=== PATIENT | female | born 2000 | race Caucasian/White ===

== ENCOUNTER 2019-04-19 15:09 | Day surgery (SDC) | payer BC ==
[2019-04-19 15:43] VITALS: BMI 24.9
--- NOTE | 2019-04-19 15:47 | PDOC.FPROB ---
FMR OB H&P: HPI - History of Present Illness Chief Complaint: abdominal pain Indentification: 18 y/o @ 32.3 WGA presents with abdominal pain History of Present Illness: Patient reports abdominal pain the past couple of days. It is constant in the RLQ radiating to the groin. It has gotten progressively worse. She denies dysuria, vaginal bleeding, vaginal d/c, LOF. Denies fevers, chills. Endorses movement. Primary Care Physician: Dr. Rees FMR OB H&P: Current - Care : 1 Para: 0 Gestational age: 32.3 WGA Due date: 06/11/19 Dating Criteria: Unknown - OB Labs Blood type: unknown RH: unknown Antibody Screen: unknown HIV: unknown RPR: unknown HepBsAg: unknown Quad screen: unknown Gonorrhea: unknown Chlamydia: unknown GBS: unknown FMR OB H&P: History - Past Medical History PMH: None - OB History OB History: - Surgical History Sx History: None - Social History Social History: Denies tobacco, EtOH, or drug use - Family History Family History: Dad - CKDIII, adrenal insufficiency Mom - HTN FMR OB H&P: Medications - Current Home Medications: Medication Instructions Recorded Confirmed Type Pnv 102/Iron/Folate 1/Dss/Dha 1 tab PO DAILY 04/19/19 04/19/19 History [Vitafol Fe+ Docusate Combo Pck] Allergies/Adverse Reactions: Allergies Allergy/AdvReac Type Severity Reaction Status Date / Time nitrofurantoin Allergy Verified 04/19/19 15:47 [From Macrobid] FMR OB H&P: ROS - Review of Systems General: denies: fever/chills, fatigue ENT: denies: nasal congestion, rhinorrhea, sore throat Cardiovascular: denies: chest pain, edema Respiratory: denies: cough, shortness of breath Gastrointestinal: reports: abdominal pain. denies: nausea, vomiting, diarrhea, constipation Genitourinary (Female): denies: dysuria, hematuria, vaginal discharge, vaginal bleeding, contractions Musculoskeletal: denies: pain, tenderness Neurologic: denies: numbness, weakness Integumentary: denies: itching, rash Endocrine: denies: cold intolerance, heat intolerance Psychological: denies: depression, anxiety FMR OB H&P: Vital Signs - Maternal Vital signs: BP 108/61 HR 74 RR 18 Temp 98.1 O2 sat 99% on RA - Heart Tones Baseline: 130 Variability: moderate Acceleration: absent Deceleration: absent Category: category 1 [place] contractions every: None FMR OB H&P: Physical Exam - Physical Exam General: NAD, awake, alert and oriented HEENT: EOMI, MMM, no scleral icterus, grossly normal vision, grossly normal hearing Neck: supple, FROM Heart: RRR, normal S1/S2, no murmurs/rubs/gallops, pulses present, no edema General: CTAB, no respiratory distress, good air movement, no rales/rhonchi, no wheezing Abdomen: soft, gravid, other (TTP in suprapubic and RLQ, no rebound or guarding) Skin: good tugor, capillary refill <2 seconds Lymphatic: no unusual bruising or bleeding, no purpura Psychiatric: intact recent and remote memory, good judgement and insight FMR OB H&P: A/P - Problem List (1) with suprapubic pain, antepartum Current Visit: Yes Status: Acute Code(s): O99.89 - OTH DISEASES AND CONDITIONS COMPL PREG/CHLDBRTH; R10.30 - LOWER ABDOMINAL PAIN, UNSPECIFIED Assessment and Plan: Patient with predominantly suprapubic/groin pain -Will check UA -VP3 -Monitor FHT's No concern for labor Vitals WNL Disposition: d/c home pending results Discussion: Date/Time: 04/19/19 7040 This H&P was discussed with Dr. Rees who agrees with the above documentation and plan. Signature: Xiomara Clay MD, PGY-2
[2019-04-19 16:14] LABS: Bilirubin Negative (Negative); Blood, Urine Negative (Negative); Clarity CLEAR (Clear); Glucose, Urine (Dipstick) Negative (Negative); Leukocyte Negative (Negative); Nitrite Negative (Negative); Protein, Urine (Dipstick) Negative (Neg-Trace); Urobilinogen 0.2 mg/dL (0.2-1.0)
[2019-04-19 16:35] LABS: RBC/HPF 0-3 HPF (0-3)
[2019-04-19 16:36] LABS: Bacteria/HPF None Seen HPF (None Seen); Hyaline Casts/LPF NONE SEEN LPF (0-3 Hyaline); Specific Gravity, Urine 1.002 (1.002-1.036); Squamous Epithelial 0-3 HPF (0-3); WBC/HPF 0-3 HPF (0-3)
--- NOTE | 2019-04-19 18:05 | PDOC.EVN ---
Event Note - Event Note Event Note: UA returns negative. VP3 is negative. Fhts stable. No significant UCs seen. SVE closed, long. DC home with precautions. Dr. Rees aware.
== END 2019-04-19 18:05 | disposition home health service (06) ==
LOC: L&D/OP 15:09
PROVIDERS: ATTEND Obstetrics & Gynecology
DX: O26.893 Other specified pregnancy related conditions, third trimester (principal); R10.31 Right lower quadrant pain; Z3A.32 32 weeks gestation of pregnancy; Z88.1 Allergy status to other antibiotic agents
CPT/HCPCS: 81001; 87480; 87510; 87660; 99283

== ENCOUNTER 2019-05-04 15:44 | Day surgery (SDC) | payer BC | END 2019-05-04 16:00 | disposition home or self-care (01) | LOC: L&D/OP 15:44 | PROVIDERS: ATTEND Obstetrics & Gynecology | DX: O36.8130 Decreased fetal movements, third trimester, not applicable or unspecified (principal); Z88.1 Allergy status to other antibiotic agents; Z3A.34 34 weeks gestation of pregnancy | CPT/HCPCS: 59025; 99282 ==

== ENCOUNTER 2019-05-29 16:23 | Emergency (ER) | payer BC ==
[~2019-05-29 16:23] MED LIST: ISOVUE-370 76%-LOCM 1 ML ONE
[2019-05-29 17:11] LABS: Hemoglobin 10.3 g/dL (12.0-16.0); Mean Corpuscular HGB CONC 33.3 g/dL (32.0-36.0); Mean Corpuscular Hemoglobin 27.5 pg (25.0-35.0); Mean Corpuscular Volume 82.6 fL (78.0-98.0); RBC Distribution Width 12.8 % (11.5-14.5); Red Blood Cell (RBC) Count 3.73 mill/uL (4.00-5.20); White Blood Cell (WBC) Count 8.7 thou/uL (4.8-10.8)
[2019-05-29 17:12] LABS: #Eosinphils 0.1 thou/uL (0.0-0.7); #Lymphocytes 1.3 thou/uL (1.20-3.40); #Monocytes 0.5 thou/uL (0.11-0.59); #Neutrophils 6.8 thou/uL (1.40-6.50); %Eosinophils 1.2 % (0.0-10.0); %Lymphocytes 14.5 % (28.0-48.0); %Neutrophils 78.2 % (31.0-61.0)
[2019-05-29 17:20] LABS: Mean Platelet Volume 11.6 fL (7.4-10.4); Platelet Count 175 thou/uL (130-400)
[2019-05-29 17:24] LABS: ALT (SGPT) 9 U/L (8-55); AST (SGOT) 13 U/L (5-34); Albumin 3.6 g/dL (3.5-5.0); Alkaline Phosphatase 256 U/L (40-150); Anion Gap 13 mmol/L (10-20); BUN (Urea Nitrogen) Less than 4 mg/dL (7.0-18.7); Bilirubin, Total 0.3 mg/dL (0.2-1.2); CK (CPK) 81 U/L (29-168); Calc. Creatinine Clearance 0 mL/min (70-130); Calcium 9.2 mg/dL (7.8-10.44); Carbon Dioxide 22 mmol/L (22-29); Chloride 106 mmol/L (98-107); Estimated GFR-MDRD Greater than 90; Globulin 2.6 g/dL (2.4-3.5); Glucose 87 mg/dL (70-105); Lipase 40 U/L (8-78); Potassium 3.9 mmol/L (3.5-5.1); Protein, Total 6.2 g/dL (6.0-8.3); Sodium 137 mmol/L (136-145)
--- NOTE | 2019-05-29 20:57 | CT ---
EXAM: CT pulmonary angiogram with IV contrast and 3-D MIP reconstructions PROVIDED CLINICAL HISTORY: Chest pain COMPARISON: None FINDINGS: There is no evidence for central or segmental pulmonary embolus. The lungs are free of significant op acity. No pleural fluid or pneumothorax apparent. No evidence for thoracic lymph node enlargement. The airway appears patent and of normal caliber. The visualized portions of the upper abdomen demonst rate no acute findings. The osseous structures demonstrate no concerning lytic or blastic lesions. IMPRESSION: No evidence for central or segmental pulmonary embolus.
--- NOTE | 2019-05-29 22:51 | PRG ---
DATE OF SERVICE: 05/29/2019 TIME OF SERVICE: 2020 hours. PRESENTING COMPLAINT: "I want to see if my baby is okay, because of decreased movement earlier in the day at 38 weeks gestation." HISTORY OF PRESENT ILLNESS: The patient is a 18-year-old primigravida, who sees Dr. Alessio Rees. She was evaluated in the emergency room for shortness of breath. Please see that ED record under a different medical record number. The patient underwent CTA of the chest and was not found to have any evidence of pulmonary embolus. She presents to labor and delivery stating her baby was moving less earlier in the day, it is moving fine now. She denies contractions. She denies rupture of membranes. She reports she was checked in the office last week and was closed long and high. The patient does have an antepartum record on the unit. PAST MEDICAL HISTORY: None. PAST SURGICAL HISTORY: Denies. ALLERGIES: DENIES. MEDICATIONS: vitamins. SOCIAL HISTORY: Denies tobacco, alcohol, or IV drug use. FAMILY HISTORY: Noncontributory. REVIEW OF SYSTEMS: Noncontributory. PHYSICAL EXAMINATION: GENERAL: White female, resting comfortably. Afebrile. The patient's blood type is A negative. LUNGS: Clear to auscultation bilaterally. Please see ER exam. ABDOMEN: Soft and nontender without rebound or guarding. Vaginal exam is deferred. EXTREMITIES: No clubbing, cyanosis, or edema. heart rate tracing was carried out for greater than 20 minutes. No contractions noted. Category I heart rate tracing was noted. Baseline is 150s, it excels to 160s to 170s with no decelerations noted. IMPRESSION: Reactive heart rate tracing with decreased movement, now resolved status post ER evaluation for possible pulmonary embolus. PLAN: Discharge home. Keep scheduled followup with Dr. Rees in 2 days, ER precautions. Job ID: [id number]
--- NOTE | 2019-06-03 13:59 | EKG ---
Test Reason : Blood Pressure : / mmHG Vent. Rate : 076 BPM Atrial Rate : 076 BPM P-R Int : 130 ms QRS Dur : 070 ms QT Int : 366 ms P-R-T Axes : 053 072 050 degrees QTc Int : 411 ms Normal sinus rhythm Normal ECG Confirmed by RUDDY WATERS M.D. ([id number]), desk editor FARTUN JOHNSTON ([id number]) on 06/03/2019 1:58:46 PM Referred By: Confirmed By:RUDDY WATERS M.D.
== END 2019-05-29 21:27 | disposition home or self-care (01) ==
LOC: L&D/OP 16:23 → ERS 16:23 → EDSTATUS 16:29 → ERS 21:27
DX: O99.89 Other specified diseases and conditions complicating pregnancy, childbirth and the puerperium (principal); R07.89 Other chest pain; Z3A.38 38 weeks gestation of pregnancy
CPT/HCPCS: 36415; 71275; 80053; 82550; 83690; 84484; 85025; 93005

== ENCOUNTER 2019-05-29 21:46 | Day surgery (SDC) | payer BC ==
[2019-05-29 21:57] VITALS: BMI 27.1
[2019-05-29] MEDS ORDERED: hydrALAZINE 20 MG/ML VIAL SLOW IVP PRN (22:22)
== END 2019-05-29 22:30 | disposition home or self-care (01) ==
LOC: L&D/OP 21:46
PROVIDERS: ATTEND Obstetrics & Gynecology
DX: O99.89 Other specified diseases and conditions complicating pregnancy, childbirth and the puerperium (principal); R07.9 Chest pain, unspecified
CPT/HCPCS: 36415; 71275; 80053; 82550; 83690; 84484; 85025; 93005; 99282

== ENCOUNTER 2019-06-06 19:15 | Inpatient (IN) | payer BC ==
[2019-06-06 20:06] VITALS: BMI 26.6
[2019-06-06] MEDS ORDERED: Methylergonovine 0.2 MG/ML VIAL IM PRN (21:35)
[2019-06-06] MEDS ORDERED: Misoprostol 200 MCG TAB PR PRN (21:35)
[2019-06-06] MEDS ORDERED: Zolpidem Tartrate 5 MG TAB PO PRN (21:35)
[2019-06-06] MEDS ORDERED: Butorphanol Tartrate 1 MG/ML VIAL SLOW IVP PRN (21:35)
[2019-06-06] MEDS ORDERED: Ibuprofen 800 MG TAB PO PRN (21:35)
[2019-06-06] MEDS ORDERED: Diphenoxylate HCl/Atropine Tablet PO PRN ×2 (21:35)
[2019-06-06] MEDS ORDERED: Lidocaine 1% (PF) 30 ML VIAL SC PRN (21:35)
[2019-06-06] MEDS ORDERED: hydrALAZINE 20 MG/ML VIAL SLOW IVP PRN (21:35)
[2019-06-06] MEDS ORDERED: NS / Oxytocin 40 units/1000ml 1,000 ML IV PRN (21:35)
[2019-06-06] MEDS ORDERED: Ondansetron PF 4 MG/2 ML Vial IVP PRN (21:35)
[2019-06-06] MEDS ORDERED: Carboprost 250 MCG/ML AMP IM PRN (21:35)
[2019-06-06] MEDS ORDERED: HYDROcodone/Acetaminophen 5/325 mg Tablet PO PRN ×2 (21:35)
[2019-06-06] MEDS ORDERED: Promethazine HCl 25 MG/ML VIAL IM PRN (21:35)
--- NOTE | 2019-06-06 21:44 | PDOC.LDHP ---
Labor and Delivery H&P Chief complaint: scheduled induction HPI: 18 y/o G! P0 at 39 and 1/7 weeks for term induction of labor. Due date: 06/12/19 Grav: 1 Para: 0 Current complications: none Abnormal US findings: No Current medications: pre-evelina vitamins Previous surgical history: none Allergies/Adverse Reactions: Allergies Allergy/AdvReac Type Severity Reaction Status Date / Time nitrofurantoin Allergy Severe Anaphylaxis Verified 05/29/19 21:52 [From Macrobid] Social history: none - Physical Exam Vital signs reviewed and normal: yes General: NAD Heart: RRR Lungs: CTAB Extremeties: no edema FHT: category 1 - Assessment L&D Assessment: elective induction at term - Plan Plan: admit to L&D, cervical ripening
[2019-06-06] MEDS ORDERED: NS w/ Oxytocin 10 units 500 ML IV SCH (22:00)
[2019-06-06] MEDS ORDERED: Penicillin G Potassium 5 MILL.UNITS in Sodium Chloride 0.9% 100 ML IVPB SCH (22:00)
[2019-06-06] MEDS: Misoprostol 100 MCG TAB VAG SCH (22:10)
[2019-06-06] MEDS: Lactated Ringer's 1,000 ML IV SCH (22:10)
[2019-06-06 23:12] LABS: Hemoglobin 9.8 g/dL (12.0-16.0); Mean Corpuscular Hemoglobin 27.3 pg (25.0-35.0); Mean Corpuscular Volume 82.7 fL (78.0-98.0); Mean Platelet Volume 11.4 fL (7.4-10.4); Platelet Count 158 thou/uL (130-400); RBC Distribution Width 13.1 % (11.5-14.5); Red Blood Cell (RBC) Count 3.59 mill/uL (4.00-5.20); White Blood Cell (WBC) Count 8.6 thou/uL (4.8-10.8)
[2019-06-06 23:50] LABS: Hep B Surf Ag Non-Reactive S/CO (NonReactive); Syphilis Antibody Nonreactive (Nonreactive); Syphilis Antibody Index 0.04 S/CO (<1.00 Non-Reactive)
[2019-06-07] MEDS: Misoprostol 100 MCG TAB VAG SCH ×2 (01:43→08:17)
[2019-06-07] MEDS ORDERED: Penicillin G 2.5 MILL.units 2.5 MILL.UNITS in Premix Bag 1 BAG IVPB SCH (02:00)
[2019-06-07] MEDS: Lactated Ringer's 1,000 ML IV SCH ×3 (03:50→14:38)
[2019-06-07] MEDS ORDERED: Bupivacaine 0.25% HCL 30 ML VIAL ONE (12:00)
[2019-06-07] MEDS ORDERED: Sodium Chloride 0.9% (PF) 10 ML VIAL ONE (12:00)
[2019-06-07] MEDS ORDERED: Fentanyl 4 mcg/Bup 0.1% Cadd 100 ML ONE (13:35)
[2019-06-07] MEDS ORDERED: Lidocaine 1.5%/Epinephrine 1:200,000 5 ML AMPUL IJ ONE (13:43)
[2019-06-07] MEDS ORDERED: ePHEDrine/0.9% NaCl/PF SYRINGE 50 mg/10 ml SLOW IVP PRN (14:19)
[2019-06-07] MEDS ORDERED: Ondansetron PF 4 MG/2 ML Vial IVP PRN ×2 (14:19→17:59)
[2019-06-07] MEDS ORDERED: Acetaminophen 325 MG TAB PO PRN (14:19)
[2019-06-07] MEDS ORDERED: Promethazine HCl 25 MG/ML VIAL IM PRN ×2 (14:19→17:59)
[2019-06-07] MEDS ORDERED: Naloxone HCl 0.4 mg/ml Vial IVP PRN ×2 (14:19)
[2019-06-07] MEDS ORDERED: diphenhydrAMINE 50 MG/ML VIAL IVP PRN (14:19)
[2019-06-07] MEDS ORDERED: Lactated Ringer's 500 ML IV PRN (14:19)
[2019-06-07] MEDS ORDERED: Terbutaline Sulfate 1 MG/ML VIAL ONE (14:20)
[2019-06-07] MEDS ORDERED: Communication Order-Pharmacy FS SCH (14:30)
[2019-06-07] MEDS ORDERED: Fentanyl 4 mcg/Bupivacaine 0.1% Cassette 100 ML EPIDURAL SCH (14:30)
[2019-06-07] MEDS ORDERED: NS / Oxytocin 40 units/1000ml 1,000 ML ONE ×4 (14:33→17:27)
[2019-06-07] MEDS ORDERED: Lidocaine 1% (PF) 30 ML VIAL ONE (14:34)
[2019-06-07] MEDS ORDERED: Penicillin G 2.5 MILL.units 50 ML ONE ×2 (14:34)
[2019-06-07] MEDS: NS w/ Oxytocin 10 units 500 ML IV SCH (16:52)
[2019-06-07] MEDS ORDERED: Lanolin Ointment 7 GM TUBE TOP PRN (17:59)
[2019-06-07] MEDS ORDERED: HYDROcodone/Acetaminophen 5/325 mg Tablet PO PRN ×2 (17:59)
[2019-06-07] MEDS ORDERED: Milk Of Magnesia 30 ML UDCUP PO PRN (17:59)
[2019-06-07] MEDS ORDERED: Bisacodyl 10 MG SUPP PR PRN (17:59)
[2019-06-07] MEDS ORDERED: Preparation H Ointment 28 GM TUBE PR PRN (17:59)
[2019-06-07] MEDS ORDERED: Acetaminophen/Codeine 30-300mg Tablet PO PRN (17:59)
[2019-06-07] MEDS ORDERED: Benzocaine-Menthol 82.5 ML CAN TOP PRN (17:59)
[2019-06-07] MEDS ORDERED: hydrALAZINE 20 MG/ML VIAL SLOW IVP PRN (17:59)
[2019-06-07] MEDS ORDERED: diphenhydrAMINE 25 MG CAP PO PRN (17:59)
[2019-06-07] MEDS ORDERED: Zolpidem Tartrate 5 MG TAB PO PRN (17:59)
[2019-06-07] MEDS ORDERED: NS / Oxytocin 40 units/1000ml 1,000 ML IV SCH (18:00)
[2019-06-07] MEDS: Ibuprofen 800 MG TAB PO SCH (20:50)
[2019-06-07] MEDS: Docusate Calcium (SURFAK) 240 MG CAP PO SCH ×2 (20:50→20:52)
[2019-06-08] MEDS: Ibuprofen 800 MG TAB PO SCH ×3 (04:26→21:39)
[2019-06-08 07:50] LABS: Hemoglobin 10.1 g/dL (12.0-16.0)
[2019-06-08] MEDS: Ferrous Sulfate 325 MG TAB PO SCH ×2 (08:32→18:28)
[2019-06-08] MEDS: Prenatal Vitamin 1 TAB PO SCH (08:32)
[2019-06-08] MEDS: Docusate Calcium (SURFAK) 240 MG CAP PO SCH ×2 (08:35→21:41)
[2019-06-08] MEDS ORDERED: Measles/Mumps/Rubella 10 MCG/0.5 ML VIAL SC ONE (09:00)
[2019-06-08] MEDS ORDERED: Adacel (T-DAP) 0.5 ML SYRINGE IM ONE (09:00)
[2019-06-08] MEDS ORDERED: Varicella virus, LIVE 0.5 ML VIAL SC ONE (09:00)
[2019-06-08] MEDS ORDERED: Bupivacaine 0.25% HCL 30 ML VIAL ONE (09:32)
[2019-06-08] MEDS ORDERED: Sodium Chloride 0.9% (PF) 10 ML VIAL ONE (09:32)
[2019-06-08] MEDS: Misoprostol 100 MCG TAB VAG SCH (21:17)
[2019-06-08] MEDS: NS w/ Oxytocin 10 units 500 ML IV SCH (23:05)
--- NOTE | 2019-06-08 23:42 | PDOC.PP ---
Post Progress Note Post Day #: 1 PO intake tolerated: yes Flatus: yes Ambulation: yes Vital Signs (12 hours) Temp Pulse Resp BP BP Pulse Ox 06/08/19 20:15 98.3 F 78 18 126/85 97 06/08/19 16:31 98 06/08/19 16:22 98.2 F 82 20 115/78 98 06/08/19 12:11 98.0 F 73 20 115/59 L Weight Weight 155 lb - Physical Examination General: NAD Cardiovascular: no m/r/g, RRR Respiratory: clear to auscultation bilaterally, non-labored breathing Abdominal: + bowel sounds, lochia, no distention Extremities: negative homans (B) Neurological: no gross focal deficits Psychiatric: A&Ox3, normal affect Result Diagrams: 06/08/19 07:42 Additional Labs: Post Labs Blood Type A NEGATIVE 06/06/19 23:03 Hep Bs Antigen Non-Reactive S/CO (NonReactive) 06/06/19 22:58 - Assessment/Plan DC home tomorrow planned.
[2019-06-09] MEDS: Ibuprofen 800 MG TAB PO SCH (06:13)
--- NOTE | 2019-06-09 08:46 | DN ---
DATE OF PROCEDURE: 06/07/2019 TIME OF SERVICE: At [facility]. PREOPERATIVE DIAGNOSIS: Intrauterine at 39 weeks 2 days. POSTOPERATIVE DIAGNOSES: Intrauterine at 39 weeks 2 days as well as episodic bradycardia and intermittent category 2 tracing with multiple resuscitative measures taken. NICU was present for delivery. Dr. Reid was also present for part of delivery and assisting. PROCEDURES: 1. Vaginal Delivery over small 2nd degree Episiotomy in the midline. Luikart- Weaver forceps were used through 3 contractions to help bring the baby down to a +3 station. They were disarticulated prior to delivery of the head, which occurred several minutes later with the patient's own spontaneous pushing. COMPLICATIONS: None. QUANTITATIVE BLOOD LOSS: 218 mL. FINDINGS: Viable male , weighing 2901 g or 6 pounds 6 ounces with a nuchal cord x1 which was also somewhat of a body cord after it exited the neck area. Apgars of 8 and 9. DETAILS OF PROCEDURE: The patient was admitted to the [facility] where she was induced with Cytotec. She spontaneously ruptured. She received epidural anesthesia. She went on to have a somewhat intermittent tracing that was category I the majority of the time, but had periods of category II tracing, which were then dealt with expeditiously with resuscitative maneuvers. The 2nd half of her dilatation occurred rather quickly with rapid descent and dilation, which may have contributed to some stress. She received terbutaline. We attempted to place an intrauterine pressure catheter in order to perform amnioinfusion. However, dilatation was too rapid, and the patient was found to be completely dilated at that point. I was there for the entirety of the patient's pushing through the 2nd stage of labor due to periods of bradycardia even while wearing oxygen. We attempted to expedite delivery using Luikart-Weaver forceps. The patient appeared to have adequate anesthesia, adequate station of the head, and the baby who would fit through her pelvis estimated to be 6.5 pounds on both measurements of the fundus and ultrasound in clinic recently performed. The forceps were articulated without any incidents easily and without difficulty maneuvering around the head. They were then used with appropriate traction through three contractions being careful not to use excessive force. The baby descended somewhat with each contraction to a +3 station from approximately a +2 station. The forceps were disarticulated after 3 contractions and the patient was allowed to push the baby using spontaneous pushing efforts and then delivered the head without difficulty. The shoulders delivered quickly and without any difficulty whatsoever. The nuchal cord as well as a partial body cord were then noted and reduced. The baby was placed on mother's abdomen where it had a rapid spontaneous cry. Cord clamping was delayed approximately 1 minute. The NICU physician, Dr. Arvizu, who was present, requested a cord gas to be done, although I am not familiar with the accuracy after delayed cord clamping. We did provide cord sample to one of the nurses in attendance in order to draw cord blood. I did not supervise this procedure nor ensure that it was done correctly as I was attending for the patient's placental delivery at that time. Fundal massage was performed. Placenta delivered intact and then repair of episiotomy was done using 3-0 and 2 -0 chromic sutures. The baby remained on the patient's abdomen much at this time and appeared to have no distress. The baby was examined by the NICU team before the departed and baby was left with mother on her chest for [id number] contact after they left. Once the episiotomy repair was complete, vaginal bleeding appeared to be minimal. The patient was allowed to recover in the labor and delivery room. Job ID: [id number] [facility]
[2019-06-09 08:56] VITALS: BP 112/68; TEMP 98.3
[2019-06-09] MEDS: Ferrous Sulfate 325 MG TAB PO SCH (09:29)
[2019-06-09] MEDS: Prenatal Vitamin 1 TAB PO SCH ×2 (09:30→09:31)
[2019-06-09] MEDS: Docusate Calcium (SURFAK) 240 MG CAP PO SCH (09:31)
== END 2019-06-09 13:15 | disposition home or self-care (01) | DRG 807 ==
LOC: L&D 19:24 → 3SW 06-07 18:38
PROVIDERS: ADMIT Obstetrics & Gynecology; ATTEND Obstetrics & Gynecology
PROC: 10D07Z5 Extraction of Products of Conception, High Forceps, Via Natural or Artificial Opening (ICD-10-PCS; principal; 2019-06-08)
PROC: 10907ZC Drainage of Amniotic Fluid, Therapeutic from Products of Conception, Via Natural or Artificial Opening (ICD-10-PCS; 2019-06-08)
PROC: 0W8NXZZ Division of Female Perineum, External Approach (ICD-10-PCS; 2019-06-08)
PROC: 3E0P7VZ Introduction of Hormone into Female Reproductive, Via Natural or Artificial Opening (ICD-10-PCS; 2019-06-08)
PROC: 3E033VJ Introduction of Other Hormone into Peripheral Vein, Percutaneous Approach (ICD-10-PCS; 2019-06-08)
DX: O76 Abnormality in fetal heart rate and rhythm complicating labor and delivery (principal); Z37.0 Single live birth; Z3A.39 39 weeks gestation of pregnancy; O69.81X0 Labor and delivery complicated by cord around neck, without compression, not applicable or unspecified
CPT/HCPCS: 36415; 51702; 82805; 85014; 85018; 85027; 85461; 86780; 86850; 86900; 86901; 87340; 90384; 96372; J2001; J2540; J2590; J3105; J3490; S0020

== ENCOUNTER 2020-08-04 12:15 | Day surgery (SDC) | payer BC ==
[2020-08-04 12:51] VITALS: BP 110/69; TEMP 98.7; BMI 25.4
--- NOTE | 2020-08-04 12:59 | PDOC.LDHP ---
Labor and Delivery H&P Chief complaint: other (N/V/D) HPI: 19 year-old female, at EGA of 30 and 6/6 weeks presents to L&D with complaints of nausea, vomiting, and diarrhea since 10 hours prior to arrival. She woke up at 3:00 AM with stomach cramping and then began having diarrhea a few hours later, which was followed by vomiting. She has had 5 episodes of watery diarrhea and 4 episodes of vomiting. She has also noted contractions beginning with the diarrhea that are irregular and last about a minute. Patient still feels movement, though it is reduced in the room. She denies any sick contacts or possible food poisoning. She will be following up with her regular OB visits 08/13/[address] Rees. Patient denies fever, urinary sx's, vaginal bleeding, abnormal vaginal d/c, or LE swelling. Current gestational age (weeks): 30 (30.6) Due date: 10/07/20 Dating criteria: last menstrual period Grav: 2 Para: 1 (1001) OB History Details: #1: term @ 39 WGA Current complications: none Abnormal US findings: No Current medications: pre- vitamins Previous surgical history: none Allergies/Adverse Reactions: Allergies Allergy/AdvReac Type Severity Reaction Status Date / Time nitrofurantoin Allergy Severe Anaphylaxis Verified 08/04/20 12:43 [From Macrobid] Social history: none - Physical Exam Abnormal vital signs: HR 106 General: NAD Heart: other (tachycardic w/ regular rhythm) Lungs: nonlabored breathing Abdomen: gravid Extremeties: no edema FHT: category 1 [place] contractions every: none noted on monitor - Plan -: 19 year-old female, at EGA of 30 and 6/6 weeks presents to L&D with complaints of nausea, vomiting, and diarrhea. N/V/D: - Patient mildly tachycardic with slightly dry mucus membranes on exam. Uterine irritability palpated but no contractions noted on monitor. Suspect viral gastroenteritis based on H&P. Will give IVF & antiemetics & check a UA and CMP to evaluate hydration status & electrolytes. Addendum - Attending - Attending Attestation Date/Time: 08/04/20 2373 I personally evaluated the patient and discussed the management with Dr. Rodriguez. I agree with the History, Examination, Assessment and Plan documented above.
[2020-08-04] MEDS ORDERED: hydrALAZINE 20 MG/ML VIAL SLOW IVP PRN (13:19)
[2020-08-04] MEDS ORDERED: Ondansetron PF 4 MG/2 ML Vial IVP PRN (13:21)
[2020-08-04] MEDS ORDERED: Lactated Ringer's 1,000 ML IV SCH (13:30)
[2020-08-04 14:01] LABS: Bacteria/HPF None Seen HPF (None Seen); Bilirubin Negative (Negative); Blood, Urine Negative (Negative); Clarity Clear (Clear); Glucose, Urine (Dipstick) Normal (Negative); Ketone, Urine 10 mg/dL (Negative); Leukocyte Negative Leu/uL (Negative); Nitrite Negative (Negative); Protein, Urine (Dipstick) Negative (Neg-Trace); RBC/HPF None Seen HPF (0-3); Specific Gravity, Urine 1.011 (1.002-1.036); Squamous Epithelial 0-3 HPF (0-3); Urobilinogen Normal mg/dL (Less than 2); WBC/HPF 0-3 HPF (0-3); pH, Urine 6.5 (5.0-9.0)
[2020-08-04 14:02] LABS: Urine Culture Reflex No No
[2020-08-04 14:18] LABS: ALT (SGPT) 9 U/L (8-55); AST (SGOT) 14 U/L (5-34); Albumin 3.8 g/dL (3.5-5.0); Alkaline Phosphatase 140 U/L (40-110); Anion Gap 14 mmol/L (10-20); BUN (Urea Nitrogen) 4 mg/dL (7.0-18.7); Bilirubin, Total 0.4 mg/dL (0.2-1.2); Calc. Creatinine Clearance 147 mL/min (70-130); Carbon Dioxide 21 mmol/L (22-29); Chloride 105 mmol/L (98-107); Estimated GFR-MDRD Greater than 90; Globulin 3.4 g/dL (2.4-3.5); Glucose 85 mg/dL (70-105); Protein, Total 7.2 g/dL (6.0-8.3); Sodium 136 mmol/L (136-145)
--- NOTE | 2020-08-04 15:10 | PDOC.BPN ---
<Ely Rodriguez - Last Filed: 08/04/20 15:10> - Brief Progress Note Encounter Date: 08/04/20 Encounter Time: 15:00 19 year-old female, at EGA of 30 and 6/6 weeks who presented to L&D with complaints of nausea, vomiting, and diarrhea since early this AM. N/V/D: - Patient mildly tachycardic with slightly dry mucus membranes on exam. FHTs reassuring. No contractions noted on monitor. Suspect viral gastroenteritis based on H&P. UA + for ketones but CMP WNLs. Tolerating PO here w/o emesis. Dispo: Will d/c home with script for zofran to take PRN. Encouraged heavy PO hydration and bland diet in setting of suspected acute viral gastroenteritis. <Louie Jalloh - Last Filed: 08/04/20 15:35> Addendum - Attending - Attending Attestation Date/Time: 08/04/20 2307 I personally evaluated the patient and discussed the management with Dr. Rodriguez. I agree with the History, Examination, Assessment and Plan documented above.
== END 2020-08-04 15:15 | disposition home or self-care (01) ==
LOC: L&D/OP 12:15
PROVIDERS: ATTEND Obstetrics & Gynecology
DX: O21.2 Late vomiting of pregnancy (principal); O99.89 Other specified diseases and conditions complicating pregnancy, childbirth and the puerperium; R19.7 Diarrhea, unspecified; Z3A.30 30 weeks gestation of pregnancy; Z88.1 Allergy status to other antibiotic agents
CPT/HCPCS: 36415; 80053; 81001; 96360; 96361; 99282

== ENCOUNTER 2020-09-24 21:10 | Day surgery (SDC) | payer BC ==
[2020-09-24 21:43] VITALS: BP 114/74; TEMP 98.4; BMI 27.1
--- NOTE | 2020-09-24 22:38 | ULT ---
Sonographic biophysical profile exam Obstetric sonogram Limited HISTORY: Decreased movement. Pain. FINDINGS: Single intrauterine gestation in cephalic presentation. Heart motion at [address] acenta is posterior. No evidence of previa or abruption. Advanced age limits anatomic detail. Amniotic fluid index 12.7. Good tone, breathing movement, and gross movements demonstrated at s onography. IMPRESSION : Sonographic biophysical profile score is 8/8. Cephalic presentation.
[2020-09-25] MEDS ORDERED: FLU VACC QS2020-21(6MOS UP)/PF 60 MCG/0.5 ML SYRINGE IM ONE (09:00)
== END 2020-09-24 22:44 | disposition home health service, planned readmission (86) ==
LOC: L&D/OP 21:10
PROVIDERS: ATTEND Obstetrics & Gynecology
DX: O36.8190 Decreased fetal movements, unspecified trimester, not applicable or unspecified (principal); Z3A.00 Weeks of gestation of pregnancy not specified; Z88.1 Allergy status to other antibiotic agents
CPT/HCPCS: 76819; 99282

== ENCOUNTER 2020-09-27 08:41 | Outpatient (CLI) | payer BC ==
[2020-09-27 22:13] LABS: SARS-CoV-2 MS2 Positive; SARS-CoV-2 N Gene Negative; SARS-CoV-2 S Gene Negative; SARS-CoV-2 by NAA Not Detected (NotDetected); SARS-CoV-2 orf1ab Negative
== END 2020-09-27 08:42 | disposition home or self-care (01) ==
LOC: LABBT 08:41
PROVIDERS: ATTEND Obstetrics & Gynecology
DX: Z20.828 Contact with and (suspected) exposure to other viral communicable diseases (principal)
CPT/HCPCS: 87635; U0003

== ENCOUNTER 2020-10-01 05:22 | Inpatient (IN) | payer BC ==
--- NOTE | 2020-09-30 19:05 | PDOC.LDHP ---
Labor and Delivery H&P Chief complaint: scheduled induction HPI: 19 y/o at 39 and 0/7 weeks presents for elective induction of labor. Current gestational age (weeks): 39 Due date: 10/07/20 Grav: 2 Para: 1 Abnormal US findings: No Current medications: pre- vitamins Allergies/Adverse Reactions: Allergies Allergy/AdvReac Type Severity Reaction Status Date / Time nitrofurantoin Allergy Severe Anaphylaxis Verified 09/24/20 22:15 [From Macrobid] Social history: none - Physical Exam Vital signs reviewed and normal: yes General: NAD Heart: RRR Lungs: CTAB Abdomen: gravid Extremeties: no edema FHT: category 1 - Assessment L&D Assessment: medically indicated induction - Plan Plan: admit to L&D, cervical ripening
[~2020-10-01 05:22] MED LIST changes: +Acetaminophen 500 MG TAB PO PRN; +Butorphanol Tartrate 1 MG/ML VIAL SLOW IVP PRN; +Carboprost 250 MCG/ML AMP IM PRN; +Diphenoxylate HCl/Atropine Tablet PO PRN; +HYDROcodone/Acetaminophen 5/325 mg Tablet PO PRN; -ISOVUE-370 76%-LOCM 1 ML ONE; +Ibuprofen 800 MG TAB PO PRN; +Lidocaine 1% (PF) 30 ML VIAL SC PRN; +Methylergonovine 0.2 MG/ML VIAL IM PRN; +Misoprostol 200 MCG TAB PR PRN; +NS w/ Oxytocin 10 units 500 ML IV SCH; +Ondansetron PF 4 MG/2 ML Vial IVP PRN; +Promethazine HCl 25 MG/ML VIAL IM PRN; +Zolpidem Tartrate 5 MG TAB PO PRN; +hydrALAZINE 20 MG/ML VIAL SLOW IVP PRN
[2020-10-01 06:03] VITALS: BMI 25.9
[2020-10-01] MEDS: Lactated Ringer's 1,000 ML IV SCH ×3 (06:15→17:19)
[2020-10-01 06:33] LABS: Mean Corpuscular HGB CONC 31.9 g/dL (32.0-36.0); Mean Corpuscular Hemoglobin 22.7 pg (27.0-31.0); Mean Corpuscular Volume 71.1 fL (78.0-98.0); Mean Platelet Volume 10.8 fL (7.4-10.4); Platelet Count 203 thou/uL (130-400); RBC Distribution Width 15.9 % (11.5-14.5); Red Blood Cell (RBC) Count 3.52 mill/uL (4.20-5.40); White Blood Cell (WBC) Count 9.4 thou/uL (4.8-10.8)
[2020-10-01 07:04] LABS: HBSAg Index 0.24 S/CO (0-0.99); Hep B Surf Ag Non-Reactive S/CO (NonReactive); Syphilis Antibody Nonreactive (Nonreactive); Syphilis Antibody Index 0.03 S/CO (<1.00 Non-Reactive)
[2020-10-01] MEDS: NS w/ Oxytocin 10 units 500 ML IV SCH ×2 (10:00→19:33)
[2020-10-01] MEDS ORDERED: Bupivacaine HCl 0.5%/Epinephrine 1:200,000/PF 30 ml Vial ONE (12:12)
[2020-10-01] MEDS ORDERED: Bupivacaine/Epinephrine 0.25% 30 ML VIAL ONE (12:12)
--- NOTE | 2020-10-01 16:51 | PDOC.LDPN ---
Labor & Delivery Progress Note - Subjective Subjective: comfortable - Objective Vital signs reviewed and normal: yes General: NAD, resting Uterine fundus: non tender Dilation: 3.5 Effacement: 50% Station: -2 FHT: category 1 [place] contractions every: 3-5 mins AROM: clear fluid Plan: continue plan of care
[2020-10-01] MEDS ORDERED: DISCONTINUE ALL PREVIOUS NARCOTICS FS SCH (17:15)
[2020-10-01] MEDS ORDERED: Bupivacaine 0.5% 20 ML, fentaNYL Citrate/PF 400 MCG in Sodium Chloride 0.9% 72 ML EPIDURAL SCH (17:15)
[2020-10-01] MEDS ORDERED: Lidocaine 1% (PF) 30 ML VIAL ONE (19:21)
[2020-10-01] MEDS ORDERED: Misoprostol 200 MCG TAB ONE (20:23)
[2020-10-01] MEDS: NS / Oxytocin 40 units/1000ml 1,000 ML IV PRN ×2 (20:40→21:59)
[2020-10-02] MEDS ORDERED: Ondansetron PF 4 MG/2 ML Vial IVP PRN (00:09)
[2020-10-02] MEDS ORDERED: Preparation H Ointment 28 GM TUBE PR PRN (00:09)
[2020-10-02] MEDS ORDERED: hydrALAZINE 20 MG/ML VIAL SLOW IVP PRN (00:09)
[2020-10-02] MEDS ORDERED: NS / Oxytocin 40 units/1000ml 1,000 ML IV SCH (00:09)
[2020-10-02] MEDS ORDERED: Milk Of Magnesia 30 ML UDCUP PO PRN (00:09)
[2020-10-02] MEDS ORDERED: Bisacodyl 10 MG SUPP PR PRN (00:09)
[2020-10-02] MEDS ORDERED: Promethazine HCl 25 MG/ML VIAL IM PRN (00:09)
[2020-10-02] MEDS ORDERED: Lanolin Ointment 7 GM TUBE TOP PRN (00:09)
[2020-10-02] MEDS ORDERED: HYDROcodone/Acetaminophen 5/325 mg Tablet PO PRN ×2 (00:09)
[2020-10-02] MEDS ORDERED: diphenhydrAMINE 25 MG CAP PO PRN (00:09)
[2020-10-02] MEDS ORDERED: Zolpidem Tartrate 5 MG TAB PO PRN (00:09)
[2020-10-02] MEDS ORDERED: Benzocaine-Menthol 82.5 ML CAN TOP PRN (00:09)
[2020-10-02] MEDS: Ibuprofen 800 MG TAB PO SCH ×3 (00:41→10:34)
[2020-10-02 07:50] LABS: Hemoglobin 8.3 g/dL (12.0-16.0); Mean Corpuscular HGB CONC 34.7 g/dL (32.0-36.0); Mean Corpuscular Hemoglobin 24.6 pg (27.0-31.0); Mean Platelet Volume 11.2 fL (7.4-10.4); Platelet Count 179 thou/uL (130-400); RBC Distribution Width 15.8 % (11.5-14.5); Red Blood Cell (RBC) Count 3.36 mill/uL (4.20-5.40); White Blood Cell (WBC) Count 12.5 thou/uL (4.8-10.8)
[2020-10-02] MEDS ORDERED: Adacel (T-DAP) 0.5 ML SYRINGE IM ONE (09:00)
[2020-10-02] MEDS ORDERED: Varicella virus, LIVE 0.5 ML VIAL SC ONE (09:00)
[2020-10-02] MEDS ORDERED: Measles/Mumps/Rubella 10 MCG/0.5 ML VIAL SC ONE (09:00)
[2020-10-02] MEDS ORDERED: Sodium Chloride 0.9% 10 ML ONE (10:01)
[2020-10-02] MEDS: Ferrous Sulfate 325 MG TAB PO SCH ×2 (10:40→16:47)
[2020-10-02] MEDS: Prenatal Vitamin 1 TAB PO SCH (10:41)
[2020-10-02] MEDS: Docusate Calcium (SURFAK) 240 MG CAP PO SCH ×2 (10:41→22:19)
[2020-10-02] MEDS: Lactated Ringer's 1,000 ML IV SCH (10:55)
--- NOTE | 2020-10-02 22:01 | PDOC.PP ---
Post Progress Note Post Day #: 1 PO intake tolerated: yes Flatus: yes Ambulation: yes Vital Signs (12 hours) Temp Pulse Resp BP Pulse Ox 10/02/20 19:13 98.7 F 77 16 108/73 98 10/02/20 16:59 97.9 F 62 16 114/83 100 10/02/20 11:44 98.4 F 66 20 120/81 98 Weight Weight 156 lb - Physical Examination General: NAD Cardiovascular: no m/r/g, RRR Respiratory: clear to auscultation bilaterally Abdominal: + bowel sounds, lochia, no distention Extremities: negative homans (B) Neurological: no gross focal deficits Psychiatric: A&Ox3, normal affect Result Diagrams: 10/02/20 07:32 Additional Labs: Post Labs Hep Bs Antigen Non-Reactive S/CO (NonReactive) 10/01/20 06:17 Blood Type A NEGATIVE 10/01/20 06:17
[2020-10-02] MEDS: Ibuprofen 100 MG/5 ML UDCUP PO SCH (22:18)
[2020-10-03] MEDS: Ibuprofen 100 MG/5 ML UDCUP PO SCH ×2 (06:10→13:33)
--- NOTE | 2020-10-03 06:22 | DN ---
DATE OF PROCEDURE: 10/01/2020 TIME OF SERVICE: At 2035 Central Standard Time. PREOPERATIVE DIAGNOSIS: Intrauterine at 39 weeks and 1 day with a term elective induction of labor. POSTOPERATIVE DIAGNOSIS: Intrauterine at 39 weeks and 1 day with a term elective induction of labor. PROCEDURE: Spontaneous vaginal delivery over a first-degree laceration of the perineum. FINDINGS: Viable male , weighing 3311 g or 7 pounds 5 ounces, Apgars 8 and 9. QUANTITATIVE BLOOD LOSS: 254 mL. COMPLICATIONS: None. PROCEDURE IN DETAIL: The patient presented to [facility] where she was admitted to the labor and delivery service. The patient underwent a normal and uneventful labor with normal cervical dilatation until she was found to be completely dilated. She was then allowed to push and was able to bring the baby down and delivered the baby in a vertex presentation without difficulties. Once the head delivered in occiput anterior position, the shoulders followed spontaneously along with the rest of the baby's body. Once out the baby's mouth and nose were bulb suctioned. The cord was clamped and cut and baby was handed to waiting attendants. Cord blood was collected. Gentle fundal massage was performed and the placenta delivered intact without problems. Hemostasis was assured. Quantitative blood loss was calculated. Inspection of the cervix, vaginal vault, and perineum did not reveal any lacerations needing suturing. Once again, hemostasis was within normal limits and the patient was allowed to recover in the labor and delivery room. Baby went to nursery. Job ID: [id number]
[2020-10-03 08:21] VITALS: BP 105/62; TEMP 98.1
[2020-10-03] MEDS: Ferrous Sulfate 325 MG TAB PO SCH (10:39)
[2020-10-03] MEDS: Docusate Calcium (SURFAK) 240 MG CAP PO SCH (10:39)
[2020-10-03] MEDS: Prenatal Vitamin 1 TAB PO SCH (10:39)
== END 2020-10-03 14:30 | disposition home or self-care (01) | DRG 807 ==
LOC: L&D 05:22 → 3SW 23:29
PROVIDERS: ADMIT Obstetrics & Gynecology; ATTEND Obstetrics & Gynecology
PROC: 10E0XZZ Delivery of Products of Conception, External Approach (ICD-10-PCS; principal; 2020-10-01)
PROC: 10907ZC Drainage of Amniotic Fluid, Therapeutic from Products of Conception, Via Natural or Artificial Opening (ICD-10-PCS; 2020-10-01)
PROC: 3E0P7VZ Introduction of Hormone into Female Reproductive, Via Natural or Artificial Opening (ICD-10-PCS; 2020-10-01)
PROC: 3E033VJ Introduction of Other Hormone into Peripheral Vein, Percutaneous Approach (ICD-10-PCS; 2020-10-01)
DX: O70.0 First degree perineal laceration during delivery (principal); Z37.0 Single live birth; Z20.828 Contact with and (suspected) exposure to other viral communicable diseases; Z3A.39 39 weeks gestation of pregnancy
CPT/HCPCS: 36415; 51702; 85027; 85461; 86780; 86850; 86870; 86900; 86901; 87340; 90384; 96372; J2405; J2590; J3010; J3490